=== PATIENT | male | born 1965 | race American Indian/Alaskan Native ===

== ENCOUNTER 2017-10-20 15:08 | Outpatient (CLI) | payer OTHER ==
--- NOTE | 2017-10-20 16:24 | XRay Report ---
Right shoulder: Pain. The shoulder is well positioned however there is a superior lateral convex deformity of the head of the humerus consistent with chronic dislocations. Mild degenerative spurs at the right a.c. joint. The bones are well-mineralized. No significant soft tissue findings. No prior exam for comparison. Impression: No acute finding identified.
== END 2017-10-20 15:09 | disposition home or self-care (01) ==
LOC: XRAY 15:08
PROVIDERS: ATTEND Internal Medicine
DX: Z02.71 Encounter for disability determination (principal); M25.812 Other specified joint disorders, left shoulder; M25.511 Pain in right shoulder